=== PATIENT | female | born 1940 | race Caucasian/White ===

== ENCOUNTER 2018-10-02 14:48 | Emergency (ER) | payer MEDICARE, BC ==
--- NOTE | 2018-10-02 15:42 | EDM.PDOC ---
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 Up until today she was able to ambulate and get into the bathroom on her own for today can barely stand she is so weak. She does not feel short of breath, she has no new pain, denies dark stools. Onset: Gradual Duration: Day(s): (Worse over the past 48 hours) Location: Reports: Generalized Associated Symptoms: Reports: Other (Some brief right posterior leg pain earlier today, that seems to have resolved.) - Related Data Allergies Allergy/AdvReac Type Severity Reaction Status Date / Time Penicillins Allergy Hives Verified 07/13/15 09:37 Home Meds: Home Meds Levothyroxine Sodium [Synthroid] 88 mcg PO QAM 04/18/13 [History] HYDROmorphone [Dilaudid] 2 - 4 mg PO Q4H PRN 10/02/18 [History] Insulin Isophane NPH, Human [HumuLIN N] 10 units SQ DAILY 10/02/18 [History] Ondansetron [Ondansetron ODT] 8 mg PO Q8H PRN 10/02/18 [History] Prochlorperazine [Compazine] 10 mg PO QID 10/02/18 [History] amLODIPine Besylate [Amlodipine Besylate] 5 mg PO DAILY 10/02/18 [History] fentaNYL [Duragesic] 12 mcg TOP Q72H 10/02/18 [History] Past Medical History HEENT History: Reports: Impaired Vision Cardiovascular History: Reports: Blood Clots/VTE/DVT, High Cholesterol Other Cardiovascular History: right arm 04/2013 Gastrointestinal History: Reports: Hemorrhoids Genitourinary History: Reports: Other (See Below) Other Genitourinary History: bladder suspension [employer] History: Reports: , Spontaneous Musculoskeletal History: Reports: Back Pain, Chronic Neurological History: Reports: None Endocrine/Metabolic History: Reports: Diabetes, Type II, Hypothyroidism Hematologic History: Reports: Blood Transfusion(s) Oncologic (Cancer) History: Reports: Other (See Below) Other Oncologic History: common bile duct Dermatologic History: Reports: Other (See Below) Other Dermatologic History: dry - Infectious Disease History Infectious Disease History: Reports: Chicken Pox, Herpes, Measles, Mumps - Past Surgical History GI Surgical History: Reports: None Female Surgical History: Reports: Hysterectomy, Salpingo-Oophorectomy Neurological Surgical History: Reports: Lumbar Spine, Other (See Below) Social & Family History - Tobacco Use Smoking Status *Q: Never Smoker - Caffeine Use Caffeine Use: Reports: Coffee - Recreational Drug Use Recreational Drug Use: No ED ROS GENERAL - Review of Systems Review Of Systems: See Below Constitutional: Reports: Fever, Chills, Malaise, Decreased Appetite HEENT: Denies: Throat Pain, Vision Change Respiratory: Denies: Shortness of Breath Cardiovascular: Denies: Chest Pain GI/Abdominal: Reports: Abdominal Pain (Some right upper quadrant abdominal discomfort), Nausea, Other (Very pale stools) : Reports: Other (Dark urine, no dysuria or increased urinary frequency) Skin: Reports: Jaundice ED EXAM, GENERAL - Physical Exam Exam: See Below (Significant jaundice) Exam Limited By: No Limitations General Appearance: Alert, Other (Patient is alert enough to answer questions but tends to fall asleep when not talked to. She is oriented and answering questions appropriately.) Eye Exam: Bilateral Eye: Other (Significant scleral icterus bilaterally) Head: Atraumatic Respiratory/Chest: No Respiratory Distress, Lungs Clear Cardiovascular: Regular Rate, Rhythm GI/Abdominal: Soft, Other (Mild tenderness and discomfort on the right abdomen but no guarding or rebound) Rectal (Female) Exam: Normal Exam, Other (No impaction or mass, stool is very light colored) Extremities: Non-Tender. No: Pedal Edema Neurological: Alert, Oriented, Other (Generalized weakness, no asymmetry) Psychiatric: Depressed Mood, Flat Affect Skin Exam: Warm, Dry, Jaundice Course - Vital Signs Last Recorded V/S: Last Vital Signs Temp 98.2 F 10/02/18 15:05 Pulse 93 10/02/18 17:25 Resp 14 10/02/18 15:05 BP 131/67 10/02/18 17:25 Pulse Ox 96 10/02/18 15:05 - Orders/Labs/Meds Orders: Active Orders 24 hr Category Date Time Status CULTURE BLOOD [BC] Urgent Lab 10/02/18 15:40 Results CULTURE BLOOD [BC] Urgent Lab 10/02/18 15:50 Results Blood Culture x2 Reflex Set [OM.PC] Urgent Oth 10/02/18 15:38 Ordered Labs: Laboratory Tests 10/02/18 10/02/18 10/02/18 Range/Units 15:40 15:40 16:26 WBC 4.5 (4.5-11.0) K/uL RBC 3.05 L (3.30-5.50) M/uL Hgb 8.8 L D (12.0-15.0) g/dL Hct 27.5 L (36.0-48.0) % MCV 90 (80-98) fL MCH 29 (27-31) pg MCHC 32 (32-36) % Plt Count 160 (150-400) K/uL Neut % (Auto) 91 H (36-66) % Lymph % (Auto) 3 L (24-44) % Park % (Auto) 5 (2-6) % Eos % (Auto) 0 L (2-4) % Baso % (Auto) 0 (0-1) % Sodium 127 L (140-148) mmol/L Potassium 3.2 L (3.6-5.2) mmol/L Chloride 89 L (100-108) mmol/L Carbon Dioxide 28 (21-32) mmol/L Anion Gap 13.2 (5.0-14.0) mmol/L BUN 17 (7-18) mg/dL Creatinine 1.0 (0.6-1.0) mg/dL Est Cr Clr Drug Dosing 36.08 mL/min Estimated GFR (MDRD) 53 L (>60) Glucose 259 H (74-106) mg/dL Lactic Acid (0.4-2.0) mmol/L Calcium 8.7 (8.5-10.1) mg/dL Total Bilirubin 9.0 H D (0.2-1.0) mg/dL AST 225 H D (15-37) U/L ALT 238 H (12-78) U/L Alkaline Phosphatase 1022 H (46-116) U/L Total Protein 5.8 L (6.4-8.2) g/dL Albumin 1.9 L (3.4-5.0) g/dL Globulin 3.9 H (2.3-3.5) g/dL Albumin/Globulin Ratio 0.5 L (1.2-2.2) Lipase (73-393) U/L Urine Color Ed[place] Urine Appearance Clear Urine pH 6.0 (4.5-8.0) Ur Specific [place] 1.010 (1.008-1.030) Urine Protein Trace (NEGATIVE) mg/dL Urine Glucose (UA) 250 H (NEGATIVE) mg/dL Urine Ketones Negative (NEGATIVE) mg/dL Urine Occult Blood Trace (NEGATIVE) Urine Nitrite Negative (NEGATIVE) Urine Bilirubin Large (NEGATIVE) Urine Urobilinogen 8 (NORMAL) mg/dL Ur Leukocyte Esterase Negative (NEGATIVE) Urine RBC 0-5 (0-5) Urine WBC Not seen (0-5) Ur Epithelial Cells Few Amorphous Sediment Not seen Urine Bacteria Not seen Urine Mucus Not seen Urine Other 10/02/18 10/02/18 Range/Units 16:56 16:56 WBC (4.5-11.0) K/uL RBC (3.30-5.50) M/uL Hgb (12.0-15.0) g/dL Hct (36.0-48.0) % MCV (80-98) fL MCH (27-31) pg MCHC (32-36) % Plt Count (150-400) K/uL Neut % (Auto) (36-66) % Lymph % (Auto) (24-44) % Park % (Auto) (2-6) % Eos % (Auto) (2-4) % Baso % (Auto) (0-1) % Sodium (140-148) mmol/L Potassium (3.6-5.2) mmol/L Chloride (100-108) mmol/L Carbon Dioxide (21-32) mmol/L Anion Gap (5.0-14.0) mmol/L BUN (7-18) mg/dL Creatinine (0.6-1.0) mg/dL Est Cr Clr Drug Dosing mL/min Estimated GFR (MDRD) (>60) Glucose (74-106) mg/dL Lactic Acid 1.2 (0.4-2.0) mmol/L Calcium (8.5-10.1) mg/dL Total Bilirubin (0.2-1.0) mg/dL AST (15-37) U/L ALT (12-78) U/L Alkaline Phosphatase (46-116) U/L Total Protein (6.4-8.2) g/dL Albumin (3.4-5.0) g/dL Globulin (2.3-3.5) g/dL Albumin/Globulin Ratio (1.2-2.2) Lipase 85 (73-393) U/L Urine Color Urine Appearance Urine pH (4.5-8.0) Ur Specific [place] (1.008-1.030) Urine Protein (NEGATIVE) mg/dL Urine Glucose (UA) (NEGATIVE) mg/dL Urine Ketones (NEGATIVE) mg/dL Urine Occult Blood (NEGATIVE) Urine Nitrite (NEGATIVE) Urine Bilirubin (NEGATIVE) Urine Urobilinogen (NORMAL) mg/dL Ur Leukocyte Esterase (NEGATIVE) Urine RBC (0-5) Urine WBC (0-5) Ur Epithelial Cells Amorphous Sediment Urine Bacteria Urine Mucus Urine Other Meds: Medications Discontinued Medications Generic Name Dose Route Start Last Admin Trade Name Freq PRN Reason Stop Dose Admin Sodium Chloride 1,000 mls @ 1,000 mls/hr 10/02/18 15:45 10/02/18 16:02 Normal Saline IV 1,000 mls/hr ASDIRECTED DANNIE Administration Meropenem 1 gm/ Sodium 50 mls @ 100 mls/hr 10/02/18 16:56 10/02/18 17:05 Chloride IV 10/02/18 17:25 100 mls/hr ONETIME ONE Administration - Re-Assessments/Exams Free Text/Narrative Re-Assessment/Exam: 10/02/18 15:58 Patient's vitals are currently normal, no fever but with a history of chemotherapy 3 days ago and a fever at home blood cultures will be obtained, CBC , CMP, and a mini catheter UA. She'll be bolused with 1 L of normal saline pending laboratory results. 10/02/18 16:59 Hemoglobin is now 8.8, bilirubin 9.0. All her LFTs are elevated. She did not redevelop a fever while in the emergency room. UA showed no evidence of infection. I discussed these findings with the oncologist in [place], he recommended a dose of meropenem, adding a lactic acid and lipase to the labs, and sending her to [place] for further evaluation by oncology and gastroenterology. She was accepted at 16:[address] Raza. 10/02/18 17:21 Patient remained tired but stable. The patient wanted to transfer her by private car so the IV was left intact, fluids were given an IV antibiotic given and she was discharged to the care of her family to transfer to [place]. [facility] was informed of the transfer by private car. Departure - Departure Time of Disposition: 18:59 Disposition: DC/Tfer to Other Clinical Impression: Weakness, Cancer of biliary passages, Jaundice Anemia Qualifiers: Anemia type: other cause - Discharge Information Instructions: Weakness Referrals: Carter Minor MD [Primary Care Provider] - Forms: ED Department Discharge Care Plan Goals: Go directly to [facility] in [place] for admission, you need further evaluation by gastroenterology and oncology. Continue your regular medications and they are expecting you this evening. - My Orders Last 24 Hours: My Active Orders 10/02/18 15:38 Blood Culture x2 Reflex Set [OM.PC] Urgent 10/02/18 15:40 CULTURE BLOOD [BC] Urgent 10/02/18 15:50 CULTURE BLOOD [BC] Urgent - Assessment/Plan Last 24 Hours: My Active Orders 10/02/18 15:38 Blood Culture x2 Reflex Set [OM.PC] Urgent 10/02/18 15:40 CULTURE BLOOD [BC] Urgent 10/02/18 15:50 CULTURE BLOOD [BC] Urgent
[2018-10-02] MEDS ORDERED: Sodium Chloride 0.9% 1,000 ML IV SCH (15:45)
[2018-10-02 17:25] VITALS: BP 131/67; PULSE 93
== END 2018-10-02 18:59 | disposition other institution (70) ==
LOC: JP.ED 14:48
DX: C24.9 Malignant neoplasm of biliary tract, unspecified (principal); D64.9 Anemia, unspecified; R53.1 Weakness; E78.00 Pure hypercholesterolemia, unspecified; E11.9 Type 2 diabetes mellitus without complications; E03.9 Hypothyroidism, unspecified; Z79.4 Long term (current) use of insulin; Z79.899 Other long term (current) drug therapy; Z88.0 Allergy status to penicillin
CPT/HCPCS: 36415; 80053; 81001; 83605; 83690; 85025; 87040; 87077; 87186; 96361; 96365; 99284; J2185; J7030; J7050; 51701